=== PATIENT | male | born 1985 | race Caucasian/White ===

== ENCOUNTER 2016-06-01 18:13 | Emergency (ER) | payer SELFPAY ==
[~2016-06-01] VITALS: Ht 185.4 cm; Wt 101.5 kg
[2016-06-01 18:17] VITALS: BP 147/99
== END 2016-06-01 21:20 | disposition left against medical advice (07) ==
LOC: ED 21:14
DX: M25.511 Pain in right shoulder (principal); Z53.21 Procedure and treatment not carried out due to patient leaving prior to being seen by health care provider

== ENCOUNTER 2016-10-06 13:42 | Emergency (ER) | payer OTHER ==
[~2016-10-06] VITALS: Ht 185.4 cm; Wt 102.6 kg
[2016-10-06] MEDS ORDERED: AZITHROMYCIN 500 MG TABLET ONE (14:56)
[2016-10-06] MEDS ORDERED: CEFTRIAXONE 250 MG ONE (14:56)
[2016-10-06] MEDS ORDERED: CEFTRIAXONE 250 MG IM ONE (15:00)
[2016-10-06] MEDS ORDERED: AZITHROMYCIN 500 MG TABLET PO ONE (15:00)
[2016-10-06 15:53] VITALS: BP 133/80
== END 2016-10-06 16:38 | disposition home or self-care (01) ==
LOC: ED 16:00
DX: R30.0 Dysuria (principal)
CPT/HCPCS: 81001; 87491; 87591; 96372; 99284; J0696